=== PATIENT | female | born 1960 | race Caucasian/White ===

== ENCOUNTER → 2016-12-06 | Outpatient (CLI) | payer MEDICAID | END | disposition home or self-care (01) | LOC: CFH 13:48 | PROVIDERS: ATTEND Nurse Practitioner Family | DX: R60.0 Localized edema (principal); M79.662 Pain in left lower leg ==

== ENCOUNTER 2018-12-09 12:46 | Emergency (ER) | payer MEDICAID ==
[~2018-12-09] VITALS: Ht 165.1 cm; Wt 111.0 kg
[2018-12-09] MEDS ORDERED: OXYcodone/APAP 5/325MG TABLET ONE (16:03)
[2018-12-09] MEDS ORDERED: DIAZEPAM 5 MG TABLET ONE (16:04)
--- NOTE | 2018-12-09 16:08 | NUR ---
RN attempted to ambulate patient. Patient states she is unable to ambulate d/t pain. Medicated per MD order.
[2018-12-09] MEDS ORDERED: DIAZEPAM 5 MG TABLET PO ONE (16:30)
[2018-12-09] MEDS ORDERED: OXYcodone/APAP 5/325MG TABLET PO ONE (16:30)
[2018-12-09 16:55] VITALS: BP 135/84
--- NOTE | 2018-12-09 17:05 | NUR ---
Patient/Caregiver given discharge instructions and they have confirmed that they understand the instructions. Patient ambulatory with steady gait.
--- NOTE | 2018-12-09 17:05 | NUR ---
Patient states pain has improved. Ambulatory with a steady gait.
== END 2018-12-09 17:06 | disposition home or self-care (01) ==
LOC: ED 17:03
DX: S39.012A Strain of muscle, fascia and tendon of lower back, initial encounter (principal); W18.39XA Other fall on same level, initial encounter; Y93.89 Activity, other specified; Y92.89 Other specified places as the place of occurrence of the external cause; Y99.8 Other external cause status
CPT/HCPCS: 72110; 99283

== ENCOUNTER 2019-06-29 10:37 | Emergency (ER) | payer MEDICAID, MEDICARE ==
[~2019-06-29] VITALS: Ht 165.1 cm; Wt 100.2 kg
[2019-06-29 11:05] VITALS: BP 148/54
[2019-06-29] MEDS ORDERED: KETOROLAC 30 MG/1 ML IM ONE (11:30)
[2019-06-29] MEDS ORDERED: KETOROLAC 60 MG/2 ML ONE (11:40)
--- NOTE | 2019-06-29 12:01 | NUR ---
AFTER MEDICATED FOR BACK PAIN LEFT UPPER BODY AND SCIATICA TYPE PAIN, AMBULATED TO DISCHARGE WINDOW
== END 2019-06-29 12:03 | disposition home or self-care (01) ==
LOC: ED 11:55
DX: S39.012A Strain of muscle, fascia and tendon of lower back, initial encounter (principal); M54.41 Lumbago with sciatica, right side; I10 Essential (primary) hypertension; X58.XXXA Exposure to other specified factors, initial encounter; Y93.89 Activity, other specified; Y92.89 Other specified places as the place of occurrence of the external cause; Y99.8 Other external cause status
CPT/HCPCS: 93005; 96372; 99283; J1885

== ENCOUNTER → 2020-06-03 | Outpatient (CLI) | payer MEDICARE | END | disposition home or self-care (01) | LOC: CFH 08:37 | PROVIDERS: ATTEND Genetic Counselor, MS | DX: Z12.31 Encounter for screening mammogram for malignant neoplasm of breast (principal); M85.88 Other specified disorders of bone density and structure, other site; I83.93 Asymptomatic varicose veins of bilateral lower extremities; N95.9 Unspecified menopausal and perimenopausal disorder | CPT/HCPCS: 77063; 77067; 77080; 93970 ==